=== PATIENT | female | born 1965 | race Caucasian/White ===

== ENCOUNTER 2017-11-23 15:48 | Emergency (ER) | payer BC, OTHER ==
[~2017-11-23] VITALS: Ht 172.7 cm; Wt 73.5 kg
[2017-11-23 17:29] VITALS: BP 173/66
[2017-11-23] MEDS ORDERED: IBUPROFEN 600600 M1 PO (17:48)
[2017-11-23] MEDS ORDERED: AUGMENTIN 875-1 EACH PO (17:48)
[2017-11-23] MEDS ORDERED: ULTRAM 50MG TAB50 MG PO (17:48)
== END 2017-11-23 17:58 | disposition home or self-care (01) ==
LOC: ER 15:48
DX: S81.851A Open bite, right lower leg, initial encounter (principal); F17.210 Nicotine dependence, cigarettes, uncomplicated; W54.0XXA Bitten by dog, initial encounter; Y92.009 Unspecified place in unspecified non-institutional (private) residence as the place of occurrence of the external cause; Y93.89 Activity, other specified; Y99.8 Other external cause status